=== PATIENT | female | born 1965 | race Caucasian/White ===

== ENCOUNTER 2021-01-31 19:24 | Observation (INO) ==
[2021-02-01] MEDS ORDERED: MOM Conc 10 ML UD.LIQ PO PRN (00:50)
[2021-02-01] MEDS ORDERED: Naloxone 0.4 MG/ML INJ IVP PRN (00:50)
[2021-02-01] MEDS ORDERED: Ondansetron ODT 4 MG TAB.RAPDIS SL PRN (00:50)
[2021-02-01] MEDS ORDERED: Melatonin 3 MG TABLET PO PRN (00:50)
[2021-02-01] MEDS ORDERED: Acetaminophen 325 MG TABLET PO PRN (00:50)
[2021-02-01] MEDS ORDERED: Dextrose Gel 15 GM/37.5 ML TUBE PO PRN ×2 (02:53)
[2021-02-01] MEDS ORDERED: *HR* Dextrose 50 % in Water (Syg) 50 ML SYRINGE IVP PRN (02:53)
[2021-02-01] MEDS ORDERED: D5% in Water 1,000 ML IVC PRN (02:53)
[2021-02-01 02:57] LABS: Hematocrit 36.1 % (35.3-44.9); Hemoglobin 12.2 g/dL (11.5-15.4); Mean Corpuscular HGB Conc 33.8 g/dL (31.6-35.5); Mean Corpuscular Hemoglobin 30.3 pg (28.0-33.3); Mean Corpuscular Volume 89.8 fL (83.0-100.0); Mean Platelet Volume 12.2 fL (9.4-12.4); Platelet Count 174 K/mcL (140-400); Red Blood Count 4.02 M/mcL (3.82-4.97); Red Cell Distribution Width 12.7 % (11.5-14.5); White Blood Count 11.4 K/mcL (4.3-11.1)
[2021-02-01 03:16] LABS: Magnesium 1.6 mg/dL (1.6-2.6); Phosphorous 2.3 mg/dL (2.7-4.5); Potassium 3.1 mEq/L (3.5-5.1)
[2021-02-01] MEDS: 0.9 % Sodium Chloride 1,000 ML IVC SCH ×2 (04:34→13:13)
[2021-02-01 04:45] LABS: Bilirubin,Urine Negative (Negative); Blood,Urine Negative (Negative); Clarity,Urine Clear (Clear); Color,Urine Light-Yellow (Yellow); Glucose,Urine (UA) Normal (Normal); Ketones,Urine Negative (Negative); Leukocyte Esterase,Urine Negative (Negative); Nitrite,Urine Negative (Negative); Protein,Urine Negative (Neg-Trace); Specific Gravity,Urine 1.015 (1.010-1.025); Urobilinogen,Urine Normal (Normal)
[2021-02-01 04:57] LABS: Sodium, Urine 79.5 mEq/L
[2021-02-01] MEDS: *HR* Heparin 5,000 UNIT/ML VIAL SQ SCH ×3 (05:43→20:56)
[2021-02-01 08:06] LABS: Estimated Average Glucose 177 mg/dl; Hemoglobin A1C 7.8 %
[2021-02-01] MEDS: amLODIPine 5 MG TABLET PO SCH (13:13)
[2021-02-01] MEDS: QUEtiapine Fumarate 25 MG TABLET PO SCH (20:55)
[2021-02-01] MEDS: Pregabalin 75 MG CAPSULE PO SCH (20:55)
[2021-02-01] MEDS: Baclofen 10 MG TABLET PO SCH (20:55)
[2021-02-01] MEDS ORDERED: traZODone 50 MG TABLET PO SCH (21:00)
[2021-02-01] MEDS ORDERED: clonazePAM 0.5 MG TABLET PO SCH (21:00)
[2021-02-01] MEDS ORDERED: Insulin LISPRO 300 UNITS/3 ML VIAL SUBQ SCH (21:00)
[2021-02-02 01:26] LABS: Basophils % 0.6 %; Eosinophils # 0.1 K/mcL (0.0-0.6); Eosinophils % 1.1 %; Hematocrit 35.3 % (35.3-44.9); Hemoglobin 12.1 g/dL (11.5-15.4); Immature Granulocytes % 0.3 % (0-4); Lymphocytes # 2.8 K/mcL (0.6-4.6); Lymphocytes % 43.6 %; Mean Corpuscular HGB Conc 34.3 g/dL (31.6-35.5); Mean Corpuscular Hemoglobin 30.3 pg (28.0-33.3); Mean Corpuscular Volume 88.5 fL (83.0-100.0); Monocytes # 0.4 K/mcL (0.0-1.3); Monocytes % 5.7 %; Neutrophils # 3.2 K/mcL (1.6-8.9); Platelet Count 174 K/mcL (140-400); Red Blood Count 3.99 M/mcL (3.82-4.97); Red Cell Distribution Width 12.7 % (11.5-14.5); Segmented Neutrophils % 48.7 %; White Blood Count 6.5 K/mcL (4.3-11.1)
[2021-02-02 01:41] LABS: BUN/Creatinine Ratio 20 (6-26); Blood Urea Nitrogen 18 mg/dL (6-20); Calcium 8.5 mg/dL (8.6-10.3); Carbon Dioxide 26 mEq/L (23-29); Chloride 108 mEq/L (98-107); Glucose 121 mg/dL (70-105); Osmolality,Calculated 295 (280-300); Potassium 3.6 mEq/L (3.5-5.1); Sodium 141 mEq/L (136-145); eGFR For African Americans > 60 (> 60); eGFR For Non-African Americans > 60 (> 60)
[2021-02-02] MEDS: *HR* Heparin 5,000 UNIT/ML VIAL SQ SCH (05:22)
[2021-02-02 08:00] VITALS: BP 115/67; PULSE 91; TEMP 98; O2SAT 99
[2021-02-02] MEDS: Baclofen 10 MG TABLET PO SCH (08:12)
[2021-02-02] MEDS: Pregabalin 75 MG CAPSULE PO SCH (08:12)
[2021-02-02] MEDS: amLODIPine 5 MG TABLET PO SCH (08:13)
[2021-02-02] MEDS: QUEtiapine Fumarate 25 MG TABLET PO SCH (08:13)
[2021-02-02] MEDS ORDERED: Venlafaxine XR (24 HR) 75 MG CAP.ER.24H PO SCH (09:00)
[2021-02-02] MEDS ORDERED: Aspirin Enteric Coated 81 MG Tablet PO SCH (09:00)
[2021-02-02] MEDS ORDERED: estradioL 0.5 MG TABLET PO SCH (09:00)
[2021-02-02] MEDS ORDERED: Multivit/Ca/Min/Fe/FA 1 TAB TABLET PO SCH (09:00)
== END 2021-02-02 10:37 | disposition home or self-care (01) ==
LOC: 2ANU → SUATTDRO 23:28
PROVIDERS: ADMIT Internal Medicine; ATTEND Student in an Organized Health Care Education/Training Program